=== PATIENT | female | born 1945 | race Caucasian/White ===

== ENCOUNTER 2017-04-16 16:38 | Outpatient (CLI) | payer MEDICARE ==
--- NOTE | 2017-04-17 08:30 | MRI ---
NONCONTRAST ENHANCED MRI IMAGES OF CERVICAL SPINE: HISTORY: Cervical disk degeneration, M50.30. FINDINGS: Multiplanar, multisequence noncontrast-enhanced MRI images cervical spine obtained. Comparison is m crow to previous exam from 08/31/13. Images demonstrate loss of the normal lordotic curvature of the cervical spine. Multilevel disk lorenzo iccation and disk-osteophyte complex is seen at the C3-4, C4-5, C5-6, and C6-7 levels. These were a ll present on the previous exam and are not significantly changed. C1-2: Unremarkable. C2-3: There is mild anterolisthesis of C2 on C3. Bilateral facet hypertrophy is seen at C2-3, larg er and more extensive in the left C2-3 facet. Moderate central spinal stenosis seen. Mild right an d moderate left C2-3 neural foraminal narrowing due to osteophyte encroachment is seen. C3-4: There is disk desiccation. There is a right-sided C3-4 lateral recess disk-osteophyte comple x compressing the thecal sac extending into the right C3-4 lateral recess and right C3-4 neural fora men. This results in severe right C3-4 neural foraminal narrowing. The left neural foramen is velasquez nt. Findings unchanged since the previous comparison exam. C4-5: There is disk space height. Disk-osteophyte complex is seen centrally compressing the thecal sac resulting in moderate central spinal stenosis. There is moderate bilateral C4-5 neural foramin al narrowing due to uncovertebral osteophyte hypertrophy. C5-6: Disk desiccation is seen. There is disk-osteophyte complex centrally compressing the thecal sac resulting in severe thecal sac compression with moderate to severe compression of the spinal cor d at C5-6. This has not significantly changed since the previous exam. There is also severe bilate ral C5-6 neural foraminal narrowing due to uncovertebral osteophyte hypertrophy. C6-7: There is a broad-based disk-osteophyte complex centrally resulting in a moderate degree of ce ntral spinal stenosis. There is mild to moderate bilateral neural foraminal narrowing due to uncove rtebral osteophyte hypertrophy. C7-T1: Unremarkable. IMPRESSION: Extensive midcervical disk-osteophyte complexes centrally extending to the neural foramen. Most sig nificant degree of central stenosis is the C5-6 level and right C4-5 lateral recess and neural amanda inal stenosis at these levels as well. POS: [facility]
== END 2017-04-16 16:39 | disposition home or self-care (01) ==
LOC: MRI 16:38
PROVIDERS: ATTEND Neurological Surgery
DX: M50.30 Other cervical disc degeneration, unspecified cervical region (principal); M48.02 Spinal stenosis, cervical region
CPT/HCPCS: 72141

== ENCOUNTER 2017-10-30 14:05 | Emergency (ER) | payer MEDICARE ==
--- NOTE | 2017-10-30 16:30 | CT ---
CT CERVICAL SPINE NONCONTRAST: History Fall. Neck injury. FINDINGS: No comparison. Vertebral body heights are maintained. Prominent osteophytosis is present throughout the vertebral bodies and facets. There is disk space narrowing at each level. Erosions about the o dontoid process are apparent. Grade I spondylolisthesis is present at the C2-3 level. No acute frac ture or dislocation. Central canal stenosis is most severe at the C5-6 level. IMPRESSION: Prominent multilevel cervical spondylosis. No acute osseous abnormalities are demonstrated. POS: [facility]
== END 2017-10-30 16:15 | disposition home or self-care (01) ==
LOC: ERS 14:05
DX: S13.4XXA Sprain of ligaments of cervical spine, initial encounter (principal); E78.5 Hyperlipidemia, unspecified; Z79.899 Other long term (current) drug therapy; W10.9XXA Fall (on) (from) unspecified stairs and steps, initial encounter
CPT/HCPCS: 72125

== ENCOUNTER 2018-04-30 13:47 | Outpatient (CLI) | payer MEDICARE ==
--- NOTE | 2018-04-30 15:55 | ULT ---
THYROID ULTRASOUND: Date: 04-30-18 Comparison: 09-26-15 History: Re-evaluate thyroid nodules. Technique: Multiplanar grayscale sonographic imaging of the thyroid gland obtained. FINDINGS: The thyroid isthmus is enlarged measuring 8 mm in AP dimension, stable. Stable prominence of the righ t and left lobe of the thyroid gland noted measuring 5.2 x 2.1 x 1.8 cm and 4.8 x 1.9 x 1.6 cm on the left. There is a solid hyperechoic nodule within the thyroid isthmus to the right of midline measuring up t o 6 mm, stable. Multiple solid nodules are seen within the right lobe of the thyroid gland, including a midpole nodule measuring up to 8 mm and a superior pole nodule measuring up to 7 mm, similar when compared to prior imaging. There is a solid nodule in the midportion of the left lobe of the thyroid gland measuring 1.5 x 1.1 x 1.5, grossly unchanged when compared to the prior exam. IMPRESSION: Heterogeneous enlarged thyroid gland containing numerous stable solid nodules. POS: [facility]
== END 2018-04-30 13:48 | disposition home or self-care (01) ==
LOC: BICULT 13:47
PROVIDERS: ATTEND Specialist
DX: E04.2 Nontoxic multinodular goiter (principal)
CPT/HCPCS: 76536

== ENCOUNTER 2018-07-21 06:42 | Outpatient (CLI) | payer MEDICARE ==
[2018-07-21 10:07] LABS: #Eosinphils 0.1 thou/uL (0.0-0.7); #Lymphocytes 1.2 thou/uL (1.20-3.40); #Monocytes 0.5 thou/uL (0.11-0.59); #Neutrophils 4.6 thou/uL (1.40-6.50); %Basophils 0.5 % (0.0-1.0); %Eosinophils 1.9 % (0.0-10.0); %Lymphocytes 17.9 % (21.0-51.0); %Monocytes 7.1 % (0.0-10.0); %Neutrophils 72.5 % (42.0-75.0); Hemoglobin 13.8 g/dL (12.0-16.0); Mean Corpuscular HGB CONC 33.2 g/dL (32.0-36.0); Mean Corpuscular Hemoglobin 31.5 pg (27.0-31.0); Mean Platelet Volume 7.3 fL (7.4-10.4); Platelet Count 301 thou/uL (130-400); RBC Distribution Width 12.8 % (11.5-14.5); Red Blood Cell (RBC) Count 4.38 mill/uL (4.20-5.40); White Blood Cell (WBC) Count 6.4 thou/uL (4.8-10.8)
[2018-07-21 10:14] LABS: INR-International Normal Ratio 0.9; Prothrombin Time 12.2 SEC (12.0-14.7)
[2018-07-21 10:28] LABS: ALT (SGPT) 30 U/L (8-55); AST (SGOT) 23 U/L (5-34); Albumin 4.4 g/dL (3.4-4.8); Alkaline Phosphatase 105 U/L (40-150); Anion Gap 14 mmol/L (10-20); BUN (Urea Nitrogen) 21 mg/dL (9.8-20.1); Bilirubin, Total 0.5 mg/dL (0.2-1.2); Calc. Creatinine Clearance 0 mL/min (70-130); Calcium 9.9 mg/dL (7.8-10.44); Carbon Dioxide 24 mmol/L (23-31); Chloride 106 mmol/L (98-107); Estimated GFR-MDRD 55; Globulin 2.5 g/dL (2.4-3.5); Glucose 99 mg/dL (83-110); Potassium 4.7 mmol/L (3.5-5.1); Protein, Total 6.9 g/dL (6.0-8.3); Sodium 139 mmol/L (136-145)
== END 2018-07-21 06:43 | disposition home or self-care (01) ==
LOC: LABBT 06:42
PROVIDERS: ATTEND Internal Medicine Cardiovascular Disease
DX: Z01.812 Encounter for preprocedural laboratory examination (principal)
CPT/HCPCS: 80053; 85025; 85610; 85730

== ENCOUNTER → 2018-07-24 | Day surgery (SDC) | payer MEDICARE ==
[2018-07-21 09:20] VITALS: BMI 34.7
[~2018-07-24] MED LIST: Fentanyl 100 MCG/2 ML VIAL ONE; Iopamidol 370 76% 100 ML VIAL ONE; Midazolam HCl 2 mg/2 ml Vial ONE
[2018-07-24 07:17] LABS: Cardiac Risk 2.2 (Less than 4.5)
== END ==
LOC: CCL 05:57
PROVIDERS: ATTEND Internal Medicine Cardiovascular Disease
PROC: 4A023N7 Measurement of Cardiac Sampling and Pressure, Left Heart, Percutaneous Approach (ICD-10-PCS; principal; 2018-07-24)
PROC: B2111ZZ Fluoroscopy of Multiple Coronary Arteries using Low Osmolar Contrast (ICD-10-PCS; 2018-07-24)
DX: R94.30 Abnormal result of cardiovascular function study, unspecified (principal); I49.3 Ventricular premature depolarization; E78.5 Hyperlipidemia, unspecified; E07.9 Disorder of thyroid, unspecified; M19.90 Unspecified osteoarthritis, unspecified site; Z87.891 Personal history of nicotine dependence; Z79.899 Other long term (current) drug therapy
CPT/HCPCS: 80061; 93458; 99152; C1769; J1644; J2250; J3010

== ENCOUNTER 2018-12-11 14:35 | Emergency (ER) | payer MEDICARE ==
[~2018-12-11 14:35] MED LIST changes: -Fentanyl 100 MCG/2 ML VIAL ONE; +ISOVUE-370 76%-LOCM 1 ML ONE; -Iopamidol 370 76% 100 ML VIAL ONE; -Midazolam HCl 2 mg/2 ml Vial ONE
[2018-12-11 15:11] LABS: #Eosinphils 0.3 thou/uL (0.0-0.7); #Lymphocytes 1.3 thou/uL (1.20-3.40); #Monocytes 0.6 thou/uL (0.11-0.59); #Neutrophils 5.3 thou/uL (1.40-6.50); %Basophils 0.6 % (0.0-1.0); %Eosinophils 4.1 % (0.0-10.0); %Lymphocytes 17.3 % (21.0-51.0); %Monocytes 7.9 % (0.0-10.0); %Neutrophils 70.1 % (42.0-75.0); Hemoglobin 12.4 g/dL (12.0-16.0); Mean Corpuscular HGB CONC 33.8 g/dL (32.0-36.0); Mean Corpuscular Hemoglobin 32.7 pg (27.0-31.0); Mean Corpuscular Volume 96.6 fL (78.0-98.0); Platelet Count 276 thou/uL (130-400); RBC Distribution Width 12.9 % (11.5-14.5); Red Blood Cell (RBC) Count 3.79 mill/uL (4.20-5.40); White Blood Cell (WBC) Count 7.5 thou/uL (4.8-10.8)
[2018-12-11 15:19] LABS: INR-International Normal Ratio 0.9; PTT 28.9 SEC (22.9-36.1); Prothrombin Time 12.3 SEC (12.0-14.7)
[2018-12-11 15:33] LABS: ALT (SGPT) 22 U/L (8-55); AST (SGOT) 20 U/L (5-34); Albumin 4.3 g/dL (3.4-4.8); Alkaline Phosphatase 87 U/L (40-150); Anion Gap 11 mmol/L (10-20); BUN (Urea Nitrogen) 17 mg/dL (9.8-20.1); Bilirubin, Total 0.4 mg/dL (0.2-1.2); CK (CPK) 190 U/L (29-168); Calc. Creatinine Clearance 0 mL/min (70-130); Calcium 9.1 mg/dL (7.8-10.44); Carbon Dioxide 26 mmol/L (23-31); Chloride 108 mmol/L (98-107); Estimated GFR-MDRD 65; Globulin 2.2 g/dL (2.4-3.5); Glucose 100 mg/dL (83-110); Protein, Total 6.5 g/dL (6.0-8.3); Sodium 141 mmol/L (136-145)
--- NOTE | 2018-12-11 15:37 | RAD ---
PA AND LATERAL CHEST: HISTORY: Chest pain, heaviness, bruising to back of legs. FINDINGS: Heart size is borderline. There is marked scoliotic change of the spine. A hiatal hernia is noted. The lungs are clear of infiltrates. IMPRESSION: 1. Hiatal hernia. 2. Scoliosis. POS: [facility]
--- NOTE | 2018-12-11 16:55 | ULT ---
US Venous Doppler Lt Unilat History: [Pain] Comparison: None. Findings: Real-time grayscale, color, and spectral analysis of the left lower extremity venous system was performed. Common femoral, femoral, proximal portions greater saphenous and deep femoral veins as well as the popliteal and posterior tibial veins were interrogated. Normal flow, augmentation, and compression. Impression: No deep venous thrombosis.
--- NOTE | 2018-12-11 17:48 | CT ---
CT angiogram thorax with contrast: (CTA pulmonary angiogram) HISTORY: 73-year-old female with dyspnea and chest pain TECHNIQUE: IV injection of iodinated contrast. Scan acquisition timing attempted to coincide with iodinated contrast bolus reaching maximal density in pulmonary arteries. 3-D MIP reconstructions. FINDINGS: There is no pulmonary thromboembolism. No thoracic aortic aneurysm or dissection. No pleural effusion , pneumothorax, or pericardial effusion. Borderline or mild cardiomegaly. 30% of stomach has herniated into the left lower chest. There is a 5 x 5 x 5 mm noncalcified round pulmonary nodule at t he right middle lobe, very close to the right lateral pleural surface. There are scattered mild patchy groundglass densities in the bilateral upper lobes and lower lobes, nonspecific. One possibili ty is minimal pulmonary interstitial edema. IMPRESSION: 1. No pulmonary thromboembolism. 2. Mild patchy groundglass densities, nonspecific. Questionable minimal pulmonary interstitial edema. 3. Single 5 mm right middle lobe pulmonary nodule. Recommend follow-up chest CT in 6 months.
== END 2018-12-11 18:22 | disposition home or self-care (01) ==
LOC: ERS 14:35
DX: S70.12XA Contusion of left thigh, initial encounter (principal); R07.9 Chest pain, unspecified; M79.662 Pain in left lower leg; E03.9 Hypothyroidism, unspecified; K21.9 Gastro-esophageal reflux disease without esophagitis; E78.5 Hyperlipidemia, unspecified; Z87.891 Personal history of nicotine dependence; Z79.899 Other long term (current) drug therapy; X58.XXXA Exposure to other specified factors, initial encounter
CPT/HCPCS: 36415; 71046; 71275; 80053; 82550; 84484; 85025; 85379; 85610; 85730; 93005

== ENCOUNTER 2018-12-24 13:15 | Outpatient (CLI) | payer MEDICARE ==
--- NOTE | 2018-12-24 15:16 | MRI ---
MRI Lumbar Spine Noncontrast: HISTORY: Spinal stenosis of lumbar region. Low back pain with shooting pain down left leg. COMPARISON: 12/24/2018 FINDINGS: The visualized retroperitoneal structures demonstrate a normal appearance. Conus medullaris is normal in morphology and terminates at the L2 level. Again noted is prominent left convex scoliosis thoracolumbar spine centered at the level of the L2 ve rtebral body. Multilevel degenerative changes are again seen in the lumbar spine. There are scattered endplate dege nerative changes seen, but the edema previously seen involving the endplates at the L1-2 level has resolved. Again noted is the large hemangioma in the L4 vertebral body. This measures approximately 2 .9 cm in greatest AP dimension. T11-12 level: There is a mild disc osteophyte complex and loss of intervertebral disc height. There i s mild effacement of the ventral aspect of the subarachnoid space. Neural foramina are patent. T12-L1 level: Again, there is loss of intervertebral disc height with endplate degenerative changes. There is broad-based disc osteophyte complex present. This narrows the ventral subarachnoid space with slight effacement of the anterior aspect of the distal spinal cord. Neural foramina are patent L1-2: There is severe loss of intervertebral disc height. Broad-based disc osteophyte complex is pres ent. Facet hypertrophic changes are again noted. There is no significant narrowing of the central spinal canal. The left neural foramen is patent, but there is moderate to severe right-sided neural f oraminal narrowing also present on prior exam. L2-3: There is loss of intervertebral disc height. Broad-based disc osteophyte complex and facet dege nerative changes are again seen greater on the right. There is prominence of the epidural fat posteriorly. There is generalized mild concentric narrowing of the thecal sac. Mild bilateral neural foraminal narrowing is again present. L3-4: There is stable slight grade 1 anterolisthesis of L3 on L4. Prominent facet hypertrophic change s are seen. There is prominence of the epidural fat posterior to the level of the thecal sac. There is generalized concentric narrowing of the thecal sac related to degenerative changes as well as prom inence of the epidural fat posteriorly. Mild bilateral neural foraminal narrowing is present unchanged from prior exam. L4-5 level: There is mild disc osteophyte complex and mild facet degenerative changes. There is no si gnificant narrowing of the central spinal canal, and there is only slight flattening of the anterior aspect of the thecal sac. The right neural foramen is patent, but there is mild to moderate left-sided neural foraminal narrowing. L5-S1: Prominent facet hypertrophic changes are identified. There is a heterogeneous but predominantl y increased T2 signal intensity rounded structure seen just medial and anterior to the left sided facet joint. This was not present on the prior examination. This most likely represents a prominent s ynovial cyst which measures 17 mm craniocaudal x13 mm AP x14 mm transverse. This predominantly occupies the subarticular zone on the left at the level of the L5 vertebral body. There is mild mass effect on the traversing left L5 nerve root. There is also mild mass effect on the left lateral aspect of the thecal sac at this level. A mild broad-based disc osteophyte complex is present. The ri ght neural foramen is patent, and there is mild left-sided neural foraminal narrowing. IMPRESSION: 1. Interval development of large synovial cyst anteromedial to the left facet joint at the L5-S1 leve l located in the subarticular zone. This synovial cyst does contact and displace the traversing left L5 nerve root anteriorly and medially. Correlation for left L5 radiculopathy is suggested. Promi nent facet degenerative changes are seen at this level with fluid signal intensity in the facet joints. 2. Multilevel degenerative changes in the lumbar spine as described with varying degrees of neural fo raminal narrowing. The remainder of the degenerative changes have not significantly progressed from prior study. 3. Left convex scoliosis lumbar spine.
== END 2018-12-24 13:16 | disposition home or self-care (01) ==
LOC: BICMRI 13:15
PROVIDERS: ATTEND Specialist
DX: M51.17 Intervertebral disc disorders with radiculopathy, lumbosacral region (principal); M48.062 Spinal stenosis, lumbar region with neurogenic claudication; M71.38 Other bursal cyst, other site; M47.26 Other spondylosis with radiculopathy, lumbar region; M41.86 Other forms of scoliosis, lumbar region
CPT/HCPCS: 72148

== ENCOUNTER 2019-12-16 14:41 | Outpatient (CLI) | payer MEDICARE ==
--- NOTE | 2019-12-16 15:15 | ULT ---
Exam: Thyroid ultrasound HISTORY: Goiter. Thyroid nodules. COMPARISON: 04/30/2018, 09/26/2015 FINDINGS: Thyroid isthmus is 0.85 cm Right thyroid lobe 5.3 x 2.1 x 1.6 cm Left thyroid lobe 4.2 x 1.9 x 1.7 cm Thyroid nodules: Right thyroid lobe: Isoechoic well-circumscribed solid nodule measuring 0.6 x 0.8 x 0.9 cm, in the mi d pole. Previously, this nodule measured 0.6 x 0.8 x 0.8 cm. Left thyroid lobe: Isoechoic solid nodule with well-circumscribed borders measuring 1.5 x 1.5 x 1.1 c m, located in the mid pole. Previously, this nodule measured 1.5 x 1.4 x 1.1. IMPRESSION: Heterogeneous echotexture of the thyroid gland is redemonstrated. Stable solid nodules in the left an d right thyroid lobe. There is greater than 4 years of stability. Transcribed Date/Time: 12/16/2019 5:59 PM
== END 2019-12-16 14:42 | disposition home or self-care (01) ==
LOC: BICULT 14:41
PROVIDERS: ATTEND Internal Medicine
DX: E04.2 Nontoxic multinodular goiter (principal); E03.9 Hypothyroidism, unspecified
CPT/HCPCS: 76536

== ENCOUNTER 2020-01-19 09:35 | Emergency (ER) | payer MEDICARE ==
--- NOTE | 2020-01-19 11:46 | CT ---
EXAM: Brain CT scan Without contrast: HISTORY: Injury from trauma, trip and fall COMPARISON: None FINDINGS: Atrophy and chronic white matter ischemic change. No focal mass or midline shift. No intra or extra-axial hemorrhage. Left maxillary sinus mucosal disease. Some deformity of the upper cervical spine probably at C2-C3 incompletely seen on this study. Althoug h, this appears to be stable from prior C-spine. IMPRESSION: No mass or bleed or other significant acute intracranial process.
== END 2020-01-19 13:04 | disposition home or self-care (01) ==
LOC: ERS 09:35
DX: S06.0X0A Concussion without loss of consciousness, initial encounter (principal); E03.9 Hypothyroidism, unspecified; K21.9 Gastro-esophageal reflux disease without esophagitis; E78.5 Hyperlipidemia, unspecified; Z79.899 Other long term (current) drug therapy; W22.8XXA Striking against or struck by other objects, initial encounter
CPT/HCPCS: 70450

== ENCOUNTER 2020-04-17 12:21 | Emergency (ER) | payer MEDICARE, OTHER ==
[2020-04-18 11:44] LABS: SARS-CoV-2 MS2 Positive; SARS-CoV-2 N Gene Positive; SARS-CoV-2 S Gene Positive; SARS-CoV-2 by NAA DETECTED (NotDetected); SARS-CoV-2 orf1ab Positive
== END 2020-04-17 12:50 | disposition home or self-care (01) ==
LOC: ERS 12:21
DX: U07.1 COVID-19 (principal); E03.9 Hypothyroidism, unspecified; K21.9 Gastro-esophageal reflux disease without esophagitis; E78.5 Hyperlipidemia, unspecified; Z87.891 Personal history of nicotine dependence; Z79.899 Other long term (current) drug therapy
CPT/HCPCS: 87635; 99283; U0003

== ENCOUNTER 2020-04-28 11:16 | Emergency (ER) | payer MEDICARE ==
--- NOTE | 2020-04-28 12:37 | RAD ---
Exam: One view chest 3 views right RIBS HISTORY: Fall one week ago. Pain Comparison: 2 view chest radiograph series 01/23/2019 FINDINGS: 1. View chest: Moderate hiatal hernia Normal cardiac silhouette Atherosclerosis No pleural effusion Chronic lung parenchymal changes, without mass or solid administration. No pneumothorax. No acute oss eous abnormalities. Rightward curvature of the distal thoracic spine Right ribs 3 views: No fracture, cortical irregularity or periosteal reaction. IMPRESSION: 1. Chronic lung parenchymal changes. No acute cardiopulmonary process 2. Stable scoliosis of the spine. Stable hiatal hernia. 3. No evidence of a right rib fracture.
== END 2020-04-28 13:27 | disposition home or self-care (01) ==
LOC: ERS 11:16
DX: S20.211A Contusion of right front wall of thorax, initial encounter (principal); E03.9 Hypothyroidism, unspecified; K21.9 Gastro-esophageal reflux disease without esophagitis; E78.5 Hyperlipidemia, unspecified; Z87.891 Personal history of nicotine dependence; W19.XXXA Unspecified fall, initial encounter; Z79.899 Other long term (current) drug therapy

== ENCOUNTER 2022-04-11 08:47 | Outpatient (CLI) | payer MEDICARE ==
[2022-04-11 10:24] LABS: #Basophils 0.1 10x3/uL (0.0-0.2); #Eosinphils 0.2 10x3/uL (0.0-0.5); #Monocytes 0.5 10x3/uL (0.0-1.1); %Basophils 1.2 % (0.0-2.0); %Eosinophils 4.3 % (0.0-6.0); %Lymphocytes 22.3 % (18.0-47.0); %Monocytes 9.7 % (0.0-10.0); %Neutrophils 62.1 % (40.0-75.0); Mean Corpuscular HGB CONC 31.6 g/dL (32.0-36.0); Mean Corpuscular Hemoglobin 29.7 pg (27.0-33.0); Mean Corpuscular Volume 93.8 fl (81.6-98.3); Mean Platelet Volume 9.1 fl (7.4-10.4); Platelet Count 339 10x3/uL (150-450); RBC Distribution Width 14.6 % (11.5-14.5); Red Blood Cell (RBC) Count 3.37 10x6/uL (3.90-5.03); White Blood Cell (WBC) Count 4.8 10x3/uL (3.5-10.5)
[2022-04-11 10:36] LABS: INR-International Normal Ratio 0.9; Prothrombin Time 9.7 sec (9.5-12.1)
[2022-04-11 10:39] LABS: Anion Gap 14 mmol/L (10-20); BUN (Urea Nitrogen) 19 mg/dL (9.8-20.1); Calc. Creatinine Clearance 0 mL/min (70-130); Calcium 9.1 mg/dL (7.8-10.44); Carbon Dioxide 24 mmol/L (23-31); Chloride 105 mmol/L (98-107); Estimated GFR 67; Glucose 92 mg/dL (83-110); Potassium 4.4 mmol/L (3.5-5.1); Sodium 139 mmol/L (136-145)
== END 2022-04-11 08:48 | disposition home or self-care (01) ==
LOC: LABBT 08:47
PROVIDERS: ATTEND Orthopaedic Surgery
DX: Z01.818 Encounter for other preprocedural examination (principal); Z20.822 Contact with and (suspected) exposure to COVID-19
CPT/HCPCS: 80048; 85025; 85610; 87081; 87811; 93005; 93010

== ENCOUNTER 2022-04-16 06:55 | Inpatient (IN) | payer MEDICARE ==
[2022-04-16] MEDS ORDERED: Vancomycin 1 GM/200 ML BAG ONE (07:20)
[2022-04-16] MEDS ORDERED: Sodium Chloride 0.9% 100 ML ONE ×2 (07:20→07:21)
[2022-04-16] MEDS ORDERED: Tranexamic Acid 1,000 MG/10 ML VIAL ONE ×2 (07:20→12:44)
[2022-04-16] MEDS ORDERED: CEFAZOLIN 2 GM VIAL ONE (07:20)
[2022-04-16] MEDS ORDERED: Fentanyl 100 MCG/2 ML VIAL ONE ×4 (07:33→13:30)
[2022-04-16] MEDS ORDERED: Midazolam HCl 2 mg/2 ml Vial ONE (07:33)
[2022-04-16] MEDS ORDERED: Bupivacaine PF 0.5% 30 ML VIAL ONE ×2 (07:33→09:56)
[2022-04-16] MEDS ORDERED: Ropivacaine 0.5% HCl/PF (150 MG/30 ML VIAL) ONE (08:47)
[2022-04-16] MEDS ORDERED: traMADol HCl 50 MG TAB PO PRN (09:00)
[2022-04-16] MEDS ORDERED: Ropivacaine 0.2% 550 ML 550 ML NERVE BLCK SCH (09:00)
[2022-04-16] MEDS ORDERED: Zolpidem Tartrate 5 MG TAB PO PRN ×2 (09:00→12:55)
[2022-04-16] MEDS ORDERED: Promethazine HCl 25 MG/ML VIAL IM PRN ×3 (09:00→12:55)
[2022-04-16] MEDS ORDERED: Ondansetron PF 4 MG/2 ML Vial IVP PRN ×2 (09:00→12:55)
[2022-04-16] MEDS ORDERED: fentaNYL Citrate/PF 100 MCG/2 ML SYRINGE ONE (10:07)
[2022-04-16] MEDS ORDERED: Ketorolac Tromethamine 30 MG/ML VIAL ONE (10:21)
[2022-04-16] MEDS ORDERED: Dexamethasone 20 MG/5 ML VIAL ONE (10:21)
[2022-04-16] MEDS ORDERED: PHENYLEPHRINE-NS 100 MCG/ML 10 ML SYRINGE ONE ×2 (10:21)
[2022-04-16] MEDS ORDERED: PROPOFOL 200 MG/20 ML VIAL ONE (10:21)
[2022-04-16] MEDS ORDERED: Lidocaine 1% PF 5 ML VIAL ONE (10:21)
[2022-04-16] MEDS ORDERED: Ondansetron PF 4 MG/2 ML Vial ONE (10:21)
[2022-04-16] MEDS ORDERED: Ketorolac Tromethamine 30 MG/ML VIAL IVP SCH (12:00)
[2022-04-16] MEDS ORDERED: Ondansetron HCl/PF 4 MG/2 ML Vial IVP PRN (12:30)
[2022-04-16] MEDS ORDERED: Promethazine HCl 25 MG/ML VIAL IVPB PRN (12:30)
[2022-04-16] MEDS ORDERED: Acetaminophen 325 MG TAB PO PRN (12:55)
[2022-04-16] MEDS: CEFAZOLIN 2 GM in Sodium Chloride 0.9% 100 ML IVPB SCH (17:16)
[2022-04-16] MEDS: HYDROcodone/Acetaminophen 10/325 mg Tablet PO PRN ×2 (17:18→20:41)
[2022-04-16] MEDS: Fentanyl 100 MCG/2 ML VIAL SLOW IVP PRN ×2 (17:18→20:39)
[2022-04-16] MEDS: Aspirin 81 mg Enteric Coated Tablet PO SCH (20:41)
[2022-04-16] MEDS ORDERED: Vancomycin 1 GM in Premix Bag 1 BAG IVPB SCH (21:00)
[2022-04-16] MEDS: diphenhydrAMINE 25 MG CAP PO PRN (22:57)
[2022-04-16] MEDS: rOPINIRole HCl 2 MG TAB PO PRN (22:57)
[2022-04-16] MEDS: Sodium Chloride 0.9% 1,000 ML IV SCH ×2 (23:08→23:09)
[2022-04-17] MEDS: HYDROcodone/Acetaminophen 10/325 mg Tablet PO PRN ×5 (03:46→21:26)
[2022-04-17] MEDS: CEFAZOLIN 2 GM in Sodium Chloride 0.9% 100 ML IVPB SCH (03:46)
[2022-04-17 05:49] LABS: Hemoglobin 7.9 g/dL (12.0-16.0); Mean Corpuscular Hemoglobin 29.1 pg (27.0-31.0); Mean Corpuscular Volume 93.7 fL (78.0-98.0); Mean Platelet Volume 6.7 fL (7.4-10.4); Platelet Count 275 thou/uL (130-400); RBC Distribution Width 14.3 % (11.5-14.5); White Blood Cell (WBC) Count 7.1 thou/uL (4.8-10.8)
[2022-04-17] MEDS: Aspirin 81 mg Enteric Coated Tablet PO SCH ×2 (08:47→21:28)
[2022-04-17] MEDS: Multivitamin W/ Minerals 1 TAB PO SCH (08:48)
[2022-04-17] MEDS: Ferrous Gluconate 324 MG TAB PO SCH ×2 (08:48→17:49)
[2022-04-17] MEDS: Senokot S 8.6-50 MG TAB PO SCH ×2 (08:48→21:27)
[2022-04-17] MEDS: Sodium Chloride 0.9% 1,000 ML IV SCH ×2 (09:09→19:31)
[2022-04-17] MEDS: Fentanyl 100 MCG/2 ML VIAL SLOW IVP PRN (10:05)
[2022-04-17] MEDS: diphenhydrAMINE 25 MG CAP PO PRN (23:45)
[2022-04-17] MEDS: traMADol HCl 50 MG TAB PO PRN (23:45)
[2022-04-18] MEDS: HYDROcodone/Acetaminophen 10/325 mg Tablet PO PRN ×4 (01:48→17:52)
[2022-04-18] MEDS: rOPINIRole HCl 2 MG TAB PO PRN (02:57)
[2022-04-18 06:16] LABS: Hemoglobin 7.7 g/dL (12.0-16.0); Mean Corpuscular HGB CONC 31.5 g/dL (32.0-36.0); Mean Corpuscular Hemoglobin 29.6 pg (27.0-31.0); Mean Corpuscular Volume 93.8 fL (78.0-98.0); Mean Platelet Volume 6.8 fL (7.4-10.4); Platelet Count 273 thou/uL (130-400); RBC Distribution Width 14.5 % (11.5-14.5); White Blood Cell (WBC) Count 7.2 thou/uL (4.8-10.8)
[2022-04-18] MEDS: Ferrous Gluconate 324 MG TAB PO SCH ×2 (09:24→17:52)
[2022-04-18] MEDS: Multivitamin W/ Minerals 1 TAB PO SCH (09:25)
[2022-04-18] MEDS: Senokot S 8.6-50 MG TAB PO SCH ×2 (09:26→21:14)
[2022-04-18] MEDS: Aspirin 81 mg Enteric Coated Tablet PO SCH ×2 (09:27→21:16)
[2022-04-18 14:31] LABS: Hemoglobin 9.2 g/dL (12.0-16.0)
[2022-04-18] MEDS: Sodium Chloride 0.9% 1,000 ML IV SCH (17:49)
[2022-04-18] MEDS ORDERED: Levothyroxine Sodium 50 MCG TAB PO SCH (20:00)
[2022-04-18] MEDS: Rosuvastatin 20 MG TAB PO SCH (21:14)
[2022-04-18] MEDS: Gabapentin 300 MG CAP PO SCH (22:13)
[2022-04-19] MEDS: Sodium Chloride 0.9% 1,000 ML IV SCH ×3 (04:01→19:57)
[2022-04-19 06:00] LABS: Hemoglobin 9.1 g/dL (12.0-16.0); Mean Corpuscular HGB CONC 31.4 g/dL (32.0-36.0); Mean Corpuscular Hemoglobin 29.4 pg (27.0-31.0); Mean Corpuscular Volume 93.5 fL (78.0-98.0); Mean Platelet Volume 6.9 fL (7.4-10.4); Platelet Count 254 thou/uL (130-400); RBC Distribution Width 14.3 % (11.5-14.5); Red Blood Cell (RBC) Count 3.08 mill/uL (4.20-5.40); White Blood Cell (WBC) Count 6.4 thou/uL (4.8-10.8)
[2022-04-19 06:05] LABS: Anion Gap 11 mmol/L (10-20); BUN (Urea Nitrogen) 13 mg/dL (9.8-20.1); Calc. Creatinine Clearance 90 mL/min (70-130); Calcium 8.6 mg/dL (7.8-10.44); Carbon Dioxide 25 mmol/L (23-31); Chloride 105 mmol/L (98-107); Estimated GFR 91; Glucose 94 mg/dL (83-110); Sodium 137 mmol/L (136-145)
[2022-04-19] MEDS: Levothyroxine Sodium 50 MCG TAB PO SCH (06:16)
[2022-04-19] MEDS: HYDROcodone/Acetaminophen 10/325 mg Tablet PO PRN ×2 (07:25→15:12)
[2022-04-19] MEDS: Ferrous Gluconate 324 MG TAB PO SCH ×2 (09:23→17:47)
[2022-04-19] MEDS: Aspirin 81 mg Enteric Coated Tablet PO SCH ×2 (09:23→22:03)
[2022-04-19] MEDS: Gabapentin 300 MG CAP PO SCH ×3 (09:24→22:02)
[2022-04-19] MEDS: Multivitamin W/ Minerals 1 TAB PO SCH (09:24)
[2022-04-19] MEDS: Senokot S 8.6-50 MG TAB PO SCH (09:24)
[2022-04-19] MEDS ORDERED: Iopamidol-370 76% 500 ML 1 ML ONE (10:53)
[2022-04-19] MEDS: traMADol HCl 50 MG TAB PO PRN (11:09)
[2022-04-19] MEDS: rOPINIRole HCl 2 MG TAB PO PRN (12:59)
[2022-04-19] MEDS ORDERED: Enoxaparin Sodium 80 MG/0.8 ML SYRINGE SC SCH ×2 (14:30→21:00)
[2022-04-19 16:43] VITALS: BMI 34.0
[2022-04-19] MEDS: Apixaban 5 MG TAB PO SCH (22:02)
[2022-04-19] MEDS: Rosuvastatin 20 MG TAB PO SCH (22:03)
[2022-04-20] MEDS: HYDROcodone/Acetaminophen 10/325 mg Tablet PO PRN ×5 (00:20→22:43)
[2022-04-20] MEDS: Senokot S 8.6-50 MG TAB PO SCH ×3 (02:11→20:53)
[2022-04-20] MEDS: Levothyroxine Sodium 50 MCG TAB PO SCH (05:28)
[2022-04-20 05:55] LABS: Hemoglobin 8.9 g/dL (12.0-16.0); Mean Corpuscular HGB CONC 31.7 g/dL (32.0-36.0); Mean Corpuscular Volume 94.7 fL (78.0-98.0); Mean Platelet Volume 6.8 fL (7.4-10.4); Platelet Count 289 thou/uL (130-400); RBC Distribution Width 14.2 % (11.5-14.5); Red Blood Cell (RBC) Count 2.95 mill/uL (4.20-5.40)
[2022-04-20] MEDS: Sodium Chloride 0.9% 1,000 ML IV SCH ×2 (06:17→17:12)
[2022-04-20] MEDS: Ferrous Gluconate 324 MG TAB PO SCH ×2 (09:52→17:06)
[2022-04-20] MEDS: Multivitamin W/ Minerals 1 TAB PO SCH (09:52)
[2022-04-20] MEDS: Gabapentin 300 MG CAP PO SCH ×3 (09:52→20:51)
[2022-04-20] MEDS: Apixaban 5 MG TAB PO SCH ×2 (09:53→20:52)
[2022-04-20] MEDS: rOPINIRole HCl 2 MG TAB PO PRN (09:53)
[2022-04-20] MEDS: Aspirin 81 mg Enteric Coated Tablet PO SCH ×2 (09:53→20:52)
[2022-04-20] MEDS: Rosuvastatin 20 MG TAB PO SCH (20:52)
[2022-04-21] MEDS: Sodium Chloride 0.9% 1,000 ML IV SCH ×3 (01:37→23:03)
[2022-04-21] MEDS: HYDROcodone/Acetaminophen 10/325 mg Tablet PO PRN ×4 (04:43→23:40)
[2022-04-21] MEDS: Levothyroxine Sodium 50 MCG TAB PO SCH (04:44)
[2022-04-21] MEDS: rOPINIRole HCl 2 MG TAB PO PRN (04:44)
[2022-04-21 07:08] LABS: Hemoglobin 9.3 g/dL (12.0-16.0); Mean Corpuscular HGB CONC 31.2 g/dL (32.0-36.0); Mean Corpuscular Hemoglobin 29.3 pg (27.0-31.0); Mean Corpuscular Volume 93.9 fL (78.0-98.0); Mean Platelet Volume 6.9 fL (7.4-10.4); Platelet Count 311 thou/uL (130-400); RBC Distribution Width 14.6 % (11.5-14.5); Red Blood Cell (RBC) Count 3.19 mill/uL (4.20-5.40); White Blood Cell (WBC) Count 5.8 thou/uL (4.8-10.8)
[2022-04-21] MEDS: Ferrous Gluconate 324 MG TAB PO SCH ×2 (08:36→17:40)
[2022-04-21] MEDS: Aspirin 81 mg Enteric Coated Tablet PO SCH ×2 (08:37→21:17)
[2022-04-21] MEDS: Multivitamin W/ Minerals 1 TAB PO SCH (08:37)
[2022-04-21] MEDS: Gabapentin 300 MG CAP PO SCH ×3 (08:37→21:16)
[2022-04-21] MEDS: Apixaban 5 MG TAB PO SCH ×2 (08:37→21:16)
[2022-04-21] MEDS: Senokot S 8.6-50 MG TAB PO SCH ×2 (09:50→21:15)
[2022-04-21] MEDS ORDERED: rOPINIRole HCl 2 MG TAB PO SCH (21:00)
[2022-04-21] MEDS: Rosuvastatin 20 MG TAB PO SCH (21:17)
[2022-04-22] MEDS: HYDROcodone/Acetaminophen 10/325 mg Tablet PO PRN ×3 (04:05→12:14)
[2022-04-22] MEDS: Levothyroxine Sodium 50 MCG TAB PO SCH (04:06)
[2022-04-22 05:44] LABS: Hemoglobin 9.1 g/dL (12.0-16.0); Mean Corpuscular HGB CONC 31.5 g/dL (32.0-36.0); Mean Corpuscular Volume 92.1 fL (78.0-98.0); Mean Platelet Volume 6.7 fL (7.4-10.4); Platelet Count 323 thou/uL (130-400); RBC Distribution Width 14.3 % (11.5-14.5); Red Blood Cell (RBC) Count 3.12 mill/uL (4.20-5.40); White Blood Cell (WBC) Count 5.3 thou/uL (4.8-10.8)
[2022-04-22] MEDS: Apixaban 5 MG TAB PO SCH (08:28)
[2022-04-22] MEDS: Gabapentin 300 MG CAP PO SCH (08:28)
[2022-04-22] MEDS: Multivitamin W/ Minerals 1 TAB PO SCH (08:28)
[2022-04-22] MEDS: Ferrous Gluconate 324 MG TAB PO SCH (08:28)
[2022-04-22] MEDS: Aspirin 81 mg Enteric Coated Tablet PO SCH (08:28)
[2022-04-22] MEDS: Senokot S 8.6-50 MG TAB PO SCH (08:30)
[2022-04-22] MEDS: Sodium Chloride 0.9% 1,000 ML IV SCH (08:30)
[2022-04-22] MEDS ORDERED: Polyethylene Glycol 3350 17 GM Packet PO SCH ×2 (09:45→10:00)
[2022-04-22 13:16] VITALS: BP 120/82; TEMP 98.2
[2022-04-23] MEDS ORDERED: Polyethylene Glycol 3350 17 GM Packet PO SCH (09:00)
== END 2022-04-22 13:00 | DRG 983 ==
LOC: SDC 06:55 → SURG A 15:30 → OBSVTOIN 04-18 07:19
PROVIDERS: ADMIT Orthopaedic Surgery; ATTEND Orthopaedic Surgery
PROC: 0SRC0J9 Replacement of Right Knee Joint with Synthetic Substitute, Cemented, Open Approach (ICD-10-PCS; principal; 2022-04-16)
PROC: 3E0T3BZ Introduction of Anesthetic Agent into Peripheral Nerves and Plexi, Percutaneous Approach (ICD-10-PCS; 2022-04-16)
PROC: 30233N1 Transfusion of Nonautologous Red Blood Cells into Peripheral Vein, Percutaneous Approach (ICD-10-PCS; 2022-04-18)
DX: I26.99 Other pulmonary embolism without acute cor pulmonale (principal); M17.11 Unilateral primary osteoarthritis, right knee; Z20.822 Contact with and (suspected) exposure to COVID-19; M21.061 Valgus deformity, not elsewhere classified, right knee; E78.5 Hyperlipidemia, unspecified; E03.9 Hypothyroidism, unspecified; K21.9 Gastro-esophageal reflux disease without esophagitis; I49.3 Ventricular premature depolarization; G25.81 Restless legs syndrome; M54.30 Sciatica, unspecified side; E78.00 Pure hypercholesterolemia, unspecified; Z96.1 Presence of intraocular lens; D64.89 Other specified anemias; R09.02 Hypoxemia; Z86.16 Personal history of COVID-19; Z28.21 Immunization not carried out because of patient refusal; Z98.890 Other specified postprocedural states; Z90.89 Acquired absence of other organs; Z87.891 Personal history of nicotine dependence; Z79.899 Other long term (current) drug therapy; Z79.890 Hormone replacement therapy; Z82.61 Family history of arthritis; Z82.49 Family history of ischemic heart disease and other diseases of the circulatory system
CPT/HCPCS: 36415; 36416; 36430; 71275; 80048; 85027; 86850; 86900; 86901; 96365; 96366; 96367; 96375; 96376; A4306; C1713; C1776; G0378; J0690; J1100; J1885; J2250; J2405; J2704; J2795; J3010; J3370; J3490; P9016; Q9967; S0020

== ENCOUNTER 2023-07-15 16:06 | Inpatient (IN) | payer MEDICARE, OTHER ==
[~2023-07-15 16:06] MED LIST changes: -ISOVUE-370 76%-LOCM 1 ML ONE; +Iopamidol-370 76% 500 ML MDV (1 ML CHARGE) ONE
[2023-07-15 16:55] LABS: #Eosinphils 0.1 thou/uL (0.0-0.7); #Monocytes 0.4 thou/uL (0.11-0.59); #Neutrophils 2.4 thou/uL (1.40-6.50); %Basophils 0.5 % (0.0-1.0); %Eosinophils 1.8 % (0.0-10.0); %Lymphocytes 25.2 % (21.0-51.0); %Monocytes 10.9 % (0.0-10.0); %Neutrophils 61.1 % (42.0-75.0); Hematocrit 20.4 % (36.0-47.0); Mean Corpuscular HGB CONC 29.4 g/dL (32.0-36.0); Mean Corpuscular Hemoglobin 26.5 pg (27.0-31.0); Mean Corpuscular Volume 90.3 fl (78.0-98.0); Mean Platelet Volume 9.1 fL (7.4-10.4); Platelet Count 357 10x3/uL (130-400); RBC Distribution Width 22.5 % (11.5-14.5); Red Blood Cell (RBC) Count 2.26 mill/uL (4.20-5.40); White Blood Cell (WBC) Count 3.9 10x3/uL (4.8-10.8)
[2023-07-15 17:18] LABS: ALT (SGPT) 19 U/L (8-55); AST (SGOT) 16 U/L (5-34); Alkaline Phosphatase 101 U/L (40-110); Anion Gap 14 mmol/L (10-20); BUN (Urea Nitrogen) 17 mg/dL (9.8-20.1); Bilirubin, Total 0.2 mg/dL (0.2-1.2); Calc. Creatinine Clearance 0 mL/min (70-130); Calcium 8.8 mg/dL (7.8-10.44); Carbon Dioxide 21 mmol/L (23-31); Chloride 108 mmol/L (98-107); Estimated GFR 71; Globulin 2.3 g/dL (2.4-3.5); Glucose 118 mg/dL (83-110); Potassium 4.5 mmol/L (3.5-5.1); Protein, Total 6.3 g/dL (5.8-8.1); Sodium 138 mmol/L (136-145)
[2023-07-15 17:22] LABS: Troponin I Less than 0.010 ng/mL (< 0.028)
[2023-07-15] MEDS ORDERED: Pantoprazole 40 MG VIAL ONE (18:08)
[2023-07-15] MEDS ORDERED: Ondansetron PF 4 MG/2 ML Vial ONE (18:08)
[2023-07-15] MEDS ORDERED: Morphine 4 MG/ML VIAL ONE (18:08)
[2023-07-15] MEDS ORDERED: Acetaminophen 325 MG TAB PO PRN (20:00)
[2023-07-15] MEDS ORDERED: Ondansetron PF 4 MG/2 ML Vial IVP PRN (20:00)
[2023-07-15] MEDS ORDERED: Ondansetron ODT 4 MG TAB SL PRN (20:00)
[2023-07-15] MEDS ORDERED: Lorazepam 1 MG TAB PO PRN (20:43)
[2023-07-15] MEDS ORDERED: Lorazepam 2 MG/ML VIAL IM PRN (20:43)
[2023-07-15] MEDS ORDERED: Electrolyte Replacement Protocol 1 EACH FS SCH (20:45)
[2023-07-15] MEDS ORDERED: Folic Acid 1 MG TAB PO SCH (21:00)
[2023-07-15] MEDS ORDERED: Multivit, Therapeutic 1 TAB PO SCH (21:00)
[2023-07-15] MEDS ORDERED: Lidocaine 4% Patch TD SCH (22:00)
[2023-07-15 22:48] VITALS: BMI 36.6
[2023-07-15] MEDS ORDERED: Furosemide 20 MG in Sodium Chloride 0.9% 90 ML IVPB SCH (23:00)
[2023-07-15] MEDS ORDERED: Furosemide 20 MG (2 mL) VIAL SLOW IVP SCH (23:15)
[2023-07-15] MEDS: Pantoprazole 40 MG VIAL IVP SCH (23:18)
[2023-07-15] MEDS: Thiamine HCl 200 MG/2 ML VIAL SLOW IVP SCH (23:22)
[2023-07-16 05:49] LABS: #Basophils 0.1 thou/uL (0.0-0.2); #Eosinphils 0.1 thou/uL (0.0-0.7); #Monocytes 0.4 thou/uL (0.11-0.59); #Neutrophils 4.7 thou/uL (1.40-6.50); %Basophils 0.9 % (0.0-1.0); %Lymphocytes 10.7 % (21.0-51.0); %Monocytes 6.7 % (0.0-10.0); %Neutrophils 80.5 % (42.0-75.0); Hemoglobin 7.8 g/dL (12.0-16.0); Mean Corpuscular HGB CONC 31.2 g/dL (32.0-36.0); Mean Corpuscular Hemoglobin 27.5 pg (27.0-31.0); Mean Platelet Volume 8.9 fL (7.4-10.4); RBC Distribution Width 19.4 % (11.5-14.5); Red Blood Cell (RBC) Count 2.84 mill/uL (4.20-5.40); White Blood Cell (WBC) Count 5.8 10x3/uL (4.8-10.8)
[2023-07-16 05:57] LABS: Platelet Count 239 10x3/uL (130-400)
[2023-07-16 06:01] LABS: Prothrombin Time 13.3 sec (12.0-14.7)
[2023-07-16 06:02] LABS: PTT 31.3 sec (22.9-36.1)
[2023-07-16 06:42] LABS: ALT (SGPT) 13 U/L (8-55); AST (SGOT) 12 U/L (5-34); Albumin 3.3 g/dL (3.4-4.8); Alkaline Phosphatase 79 U/L (40-110); Anion Gap 10 mmol/L (10-20); BUN (Urea Nitrogen) 13 mg/dL (9.8-20.1); Bilirubin, Total 0.6 mg/dL (0.2-1.2); Calc. Creatinine Clearance 78 mL/min (70-130); Calcium 8.4 mg/dL (7.8-10.44); Carbon Dioxide 23 mmol/L (23-31); Chloride 109 mmol/L (98-107); Estimated GFR 75; Globulin 2.1 g/dL (2.4-3.5); Glucose 92 mg/dL (83-110); Potassium 3.9 mmol/L (3.5-5.1); Protein, Total 5.4 g/dL (5.8-8.1); Sodium 138 mmol/L (136-145)
[2023-07-16 08:16] LABS: Hematocrit 25.5 % (36.0-47.0); Hemoglobin 8.1 g/dL (12.0-16.0)
[2023-07-16] MEDS: Multivit, Therapeutic 1 TAB PO SCH (08:37)
[2023-07-16] MEDS: Folic Acid 1 MG TAB PO SCH (08:37)
[2023-07-16] MEDS: Pantoprazole 40 MG VIAL IVP SCH (08:40)
[2023-07-16] MEDS: Transdermal Patch Removal TOP SCH (08:47)
[2023-07-16] MEDS ORDERED: Sodium Chloride 0.9% 1,000 ML IV SCH (09:00)
[2023-07-16] MEDS ORDERED: Furosemide 20 MG (2 mL) VIAL SLOW IVP SCH (10:00)
[2023-07-16] MEDS ORDERED: Lidocaine 1% PF 5 ML VIAL ONE (10:15)
[2023-07-16] MEDS ORDERED: PROPOFOL 20 ML ONE (10:15)
[2023-07-16] MEDS ORDERED: Acetaminophen 325 MG TAB PO PRN (12:38)
[2023-07-16] MEDS ORDERED: Ibuprofen 600 MG TAB PO PRN (13:26)
[2023-07-16] MEDS ORDERED: rOPINIRole HCl 2 MG TAB PO SCH ×5 (14:00→18:00)
[2023-07-16] MEDS: Lidocaine 4% Patch TD SCH (20:23)
[2023-07-16] MEDS: Thiamine HCl 200 MG/2 ML VIAL SLOW IVP SCH (20:26)
[2023-07-16] MEDS: Rosuvastatin 20 MG TAB PO SCH (20:26)
[2023-07-16] MEDS: Gabapentin 300 MG CAP PO SCH (20:26)
[2023-07-16] MEDS ORDERED: Lorazepam 1 MG TAB PO PRN (20:44)
[2023-07-16] MEDS ORDERED: Cyclobenzaprine 10 MG TAB PO SCH (22:30)
[2023-07-17] MEDS ORDERED: Morphine 2 MG/ML VIAL SLOW IVP SCH (02:45)
[2023-07-17] MEDS ORDERED: traMADol HCl 50 MG TAB PO SCH (03:30)
[2023-07-17] MEDS: Levothyroxine Sodium 50 MCG TAB PO SCH (04:07)
[2023-07-17 05:13] LABS: #Eosinphils 0.1 thou/uL (0.0-0.7); #Monocytes 0.5 thou/uL (0.11-0.59); #Neutrophils 4.2 thou/uL (1.40-6.50); %Basophils 0.7 % (0.0-1.0); %Eosinophils 1.6 % (0.0-10.0); %Lymphocytes 14.3 % (21.0-51.0); %Neutrophils 75.2 % (42.0-75.0); Hematocrit 23.5 % (36.0-47.0); Hemoglobin 7.3 g/dL (12.0-16.0); Mean Corpuscular HGB CONC 31.1 g/dL (32.0-36.0); Mean Corpuscular Hemoglobin 27.1 pg (27.0-31.0); Mean Corpuscular Volume 87.4 fl (78.0-98.0); Mean Platelet Volume 9.1 fL (7.4-10.4); Platelet Count 214 10x3/uL (130-400); RBC Distribution Width 19.9 % (11.5-14.5); Red Blood Cell (RBC) Count 2.69 mill/uL (4.20-5.40); White Blood Cell (WBC) Count 5.6 10x3/uL (4.8-10.8)
[2023-07-17 05:41] LABS: ALT (SGPT) 12 U/L (8-55); AST (SGOT) 10 U/L (5-34); Albumin 3.1 g/dL (3.4-4.8); Alkaline Phosphatase 75 U/L (40-110); Anion Gap 10 mmol/L (10-20); BUN (Urea Nitrogen) 16 mg/dL (9.8-20.1); Bilirubin, Total 0.4 mg/dL (0.2-1.2); Calc. Creatinine Clearance 67 mL/min (70-130); Carbon Dioxide 25 mmol/L (23-31); Chloride 107 mmol/L (98-107); Estimated GFR 67; Glucose 95 mg/dL (83-110); Magnesium 2.1 mg/dL (1.6-2.6); Phosphorus 3.6 mg/dL (2.3-4.7); Potassium 3.6 mmol/L (3.5-5.1); Protein, Total 5.1 g/dL (5.8-8.1); Sodium 138 mmol/L (136-145)
[2023-07-17] MEDS ORDERED: traMADol HCl 50 MG TAB PO PRN (08:23)
[2023-07-17] MEDS: Gabapentin 300 MG CAP PO SCH ×2 (09:00→20:07)
[2023-07-17] MEDS: Multivit, Therapeutic 1 TAB PO SCH (09:02)
[2023-07-17] MEDS: Folic Acid 1 MG TAB PO SCH (09:02)
[2023-07-17] MEDS: Furosemide 20 MG TAB PO SCH ×2 (09:07→14:46)
[2023-07-17] MEDS: Transdermal Patch Removal TOP SCH (09:12)
[2023-07-17 11:50] LABS: Hemoglobin 7.9 g/dL (12.0-16.0)
[2023-07-17] MEDS: rOPINIRole HCl 2 MG TAB PO SCH ×2 (16:08→20:28)
[2023-07-17] MEDS: Thiamine HCl 200 MG/2 ML VIAL SLOW IVP SCH (20:07)
[2023-07-17] MEDS: Rosuvastatin 20 MG TAB PO SCH (20:08)
[2023-07-17] MEDS ORDERED: Lorazepam 1 MG TAB PO PRN (20:44)
[2023-07-17] MEDS: Lidocaine 4% Patch TD SCH (20:58)
[2023-07-18] MEDS: Levothyroxine Sodium 50 MCG TAB PO SCH (05:46)
[2023-07-18 05:55] LABS: #Eosinphils 0.1 thou/uL (0.0-0.7); #Monocytes 0.5 thou/uL (0.11-0.59); #Neutrophils 2.9 thou/uL (1.40-6.50); %Basophils 0.7 % (0.0-1.0); %Eosinophils 3.1 % (0.0-10.0); %Lymphocytes 22.4 % (21.0-51.0); %Neutrophils 63.6 % (42.0-75.0); Hemoglobin 8.2 g/dL (12.0-16.0); Mean Corpuscular HGB CONC 30.4 g/dL (32.0-36.0); Mean Corpuscular Hemoglobin 26.5 pg (27.0-31.0); Mean Corpuscular Volume 87.4 fl (78.0-98.0); Mean Platelet Volume 9.3 fL (7.4-10.4); Platelet Count 228 10x3/uL (130-400); Red Blood Cell (RBC) Count 3.09 mill/uL (4.20-5.40); White Blood Cell (WBC) Count 4.5 10x3/uL (4.8-10.8)
[2023-07-18 06:32] LABS: ALT (SGPT) 12 U/L (8-55); AST (SGOT) 10 U/L (5-34); Albumin 3.3 g/dL (3.4-4.8); Alkaline Phosphatase 80 U/L (40-110); Anion Gap 13 mmol/L (10-20); BUN (Urea Nitrogen) 15 mg/dL (9.8-20.1); Bilirubin, Total 0.4 mg/dL (0.2-1.2); Calc. Creatinine Clearance 70 mL/min (70-130); Calcium 8.3 mg/dL (7.8-10.44); Carbon Dioxide 22 mmol/L (23-31); Chloride 107 mmol/L (98-107); Estimated GFR 69; Globulin 2.2 g/dL (2.4-3.5); Glucose 91 mg/dL (83-110); Potassium 3.6 mmol/L (3.5-5.1); Protein, Total 5.5 g/dL (5.8-8.1); Sodium 138 mmol/L (136-145)
[2023-07-18] MEDS ORDERED: Thiamine 100 MG TAB PO SCH (09:00)
[2023-07-18] MEDS: Furosemide 20 MG TAB PO SCH ×2 (09:58→15:17)
[2023-07-18] MEDS: Folic Acid 1 MG TAB PO SCH (09:58)
[2023-07-18] MEDS: Gabapentin 300 MG CAP PO SCH (09:58)
[2023-07-18] MEDS: Multivit, Therapeutic 1 TAB PO SCH (09:59)
[2023-07-18] MEDS: Transdermal Patch Removal TOP SCH (09:59)
[2023-07-18 10:59] VITALS: BP 122/73; TEMP 98.6
[2023-07-18] MEDS ORDERED: Lorazepam 0.5 MG TAB PO PRN (20:44)
== END 2023-07-18 15:44 | disposition home or self-care (01) | DRG 377 ==
LOC: ERS 16:06 → OBSVTOIN 19:38 → T4-A 19:38 → 2SW 23:09
PROVIDERS: ADMIT Student in an Organized Health Care Education/Training Program; ATTEND Student in an Organized Health Care Education/Training Program
PROC: 30233N1 Transfusion of Nonautologous Red Blood Cells into Peripheral Vein, Percutaneous Approach (ICD-10-PCS; 2023-07-15)
PROC: 0DB78ZX Excision of Stomach, Pylorus, Via Natural or Artificial Opening Endoscopic, Diagnostic (ICD-10-PCS; principal; 2023-07-16)
DX: K29.71 Gastritis, unspecified, with bleeding (principal); I50.21 Acute systolic (congestive) heart failure; J96.01 Acute respiratory failure with hypoxia; D62 Acute posthemorrhagic anemia; E03.9 Hypothyroidism, unspecified; G25.81 Restless legs syndrome; E78.5 Hyperlipidemia, unspecified; Z96.651 Presence of right artificial knee joint; F17.210 Nicotine dependence, cigarettes, uncomplicated; R91.1 Solitary pulmonary nodule; E78.00 Pure hypercholesterolemia, unspecified; F10.10 Alcohol abuse, uncomplicated; M25.551 Pain in right hip; K44.9 Diaphragmatic hernia without obstruction or gangrene; K25.9 Gastric ulcer, unspecified as acute or chronic, without hemorrhage or perforation; Z86.711 Personal history of pulmonary embolism; Z79.01 Long term (current) use of anticoagulants; Z79.890 Hormone replacement therapy; Z79.899 Other long term (current) drug therapy; Z90.89 Acquired absence of other organs; Z98.890 Other specified postprocedural states; Z82.49 Family history of ischemic heart disease and other diseases of the circulatory system
CPT/HCPCS: 36415; 36416; 36430; 74177; 80053; 83735; 83880; 84100; 84484; 85025; 85610; 85730; 86850; 86900; 86901; 88305; 88342; 93005; 96374; 96375; C9113; J1940; J2270; J2405; J2704; J3411; J7050; P9016; Q9967

== ENCOUNTER 2023-10-01 13:35 | Outpatient (CLI) | payer MEDICARE | END 2023-10-01 13:36 | disposition home or self-care (01) | LOC: BICMAMMO 13:35 | PROVIDERS: ATTEND Student in an Organized Health Care Education/Training Program | DX: Z12.31 Encounter for screening mammogram for malignant neoplasm of breast (principal); Z91.89 Other specified personal risk factors, not elsewhere classified | CPT/HCPCS: 77063; 77067 ==

== ENCOUNTER 2023-12-22 13:42 | Outpatient (CLI) | payer MEDICARE | END 2023-12-22 13:43 | disposition home or self-care (01) | LOC: ULT 13:42 | PROVIDERS: ATTEND Internal Medicine Cardiovascular Disease | DX: Z86.718 Personal history of other venous thrombosis and embolism (principal) | CPT/HCPCS: 93970 ==